=== PATIENT | female | born 1990 | race Hispanic/Latino ===

== ENCOUNTER 2020-09-10 19:43 | Inpatient (IN) | payer BC ==
[~2020-09-10 19:43] MED LIST: Iopamidol-370 76% 500 ML 1 ML ONE
[2020-09-10] MEDS ORDERED: Ketorolac Tromethamine 30 MG/ML VIAL ONE (20:18)
[2020-09-10 20:29] LABS: #Basophils 0.1 thou/uL (0.0-0.2); #Lymphocytes 1.7 thou/uL (1.20-3.40); #Monocytes 0.5 thou/uL (0.11-0.59); #Neutrophils 7.5 thou/uL (1.40-6.50); %Basophils 0.7 % (0.0-1.0); %Eosinophils 0.1 % (0.0-10.0); %Lymphocytes 17.3 % (21.0-51.0); %Monocytes 4.9 % (0.0-10.0); Hemoglobin 14.1 g/dL (12.0-16.0); Mean Corpuscular HGB CONC 34.6 g/dL (32.0-36.0); Mean Corpuscular Hemoglobin 30.2 pg (27.0-31.0); Mean Corpuscular Volume 87.1 fL (78.0-98.0); Mean Platelet Volume 7.1 fL (7.4-10.4); Platelet Count 323 thou/uL (130-400); RBC Distribution Width 11.5 % (11.5-14.5); Red Blood Cell (RBC) Count 4.69 mill/uL (4.20-5.40); White Blood Cell (WBC) Count 9.7 thou/uL (4.8-10.8)
--- NOTE | 2020-09-10 20:44 | RAD ---
PORTABLE CHEST ONE VIEW: 09/10/20 at 8:05 p.m. HISTORY: COVID positive, difficulty breathing. FINDINGS: The heart size is normal. The lungs are well expanded with patchy multifocal opacities bilaterally. N o pneumothoraces or pleural effusions are seen. IMPRESSION: Findings are consistent with COVID-19 pneumonia. POS: OFF
[2020-09-10 20:48] LABS: ALT (SGPT) 51 U/L (8-55); AST (SGOT) 66 U/L (5-34); Albumin 3.7 g/dL (3.5-5.0); Alkaline Phosphatase 79 U/L (40-110); Anion Gap 18 mmol/L (10-20); BUN (Urea Nitrogen) 12 mg/dL (7.0-18.7); Bilirubin, Total 0.5 mg/dL (0.2-1.2); Calc. Creatinine Clearance 0 mL/min (70-130); Calcium 8.4 mg/dL (7.8-10.44); Carbon Dioxide 24 mmol/L (22-29); Chloride 100 mmol/L (98-107); Globulin 3.5 g/dL (2.4-3.5); Glucose 116 mg/dL (70-105); Protein, Total 7.2 g/dL (6.0-8.3); Sodium 139 mmol/L (136-145)
[2020-09-10 21:13] LABS: Bilirubin Negative (Negative); Blood, Urine Negative (Negative); Clarity Clear (Clear); Glucose, Urine (Dipstick) Normal (Negative); Ketone, Urine 10 mg/dL (Negative); Leukocyte Negative Leu/uL (Negative); Nitrite Negative (Negative); Protein, Urine (Dipstick) 70 mg/dL (Neg-Trace); RBC/HPF 0-3 HPF (0-3); Specific Gravity, Urine 1.032 (1.002-1.036); Urobilinogen Normal mg/dL (Less than 2)
[2020-09-10 21:14] LABS: Bacteria/HPF Rare-Few HPF (None Seen)
[2020-09-10 21:15] LABS: Pregnancy Test - Urine (BHCG) Negative (Negative); Pregu Control Background? CLEAR/WHITE (CLR/WHITE); Pregu Control Bar Appear? YES (CONTROL BAR); Specific Gravity 1.032 (1.002-1.036)
--- NOTE | 2020-09-10 21:58 | CT ---
CT PULMONARY ANGIOGRAM WITH IV CONTRAST AND 3D POSTPROCESSIN09/10/20 HISTORY: Dyspnea. COVID positive. FINDINGS: No filling defects are seen in the pulmonary arterial vasculature to suggest pulmonary embolism. The thoracic aorta is well opacified without aneurysmal dissection. No pleural or pericardial effusions a re seen. There are scattered patchy multifocal ground glass opacity/consolidation in the lung dhillon bilaterally. No acute osseous abnormalities are seen. There is a metallic density posteriorly at T10 level. IMPRESSION: 1. No CT evidence of pulmonary embolism. 2. COVID-19 pneumonia. POS: OFF
[2020-09-10] MEDS ORDERED: Dexamethasone 10 MG/ML VIAL ONE (22:49)
[2020-09-11 00:51] VITALS: BMI 31.5
[2020-09-11] MEDS ORDERED: Ondansetron PF 4 MG/2 ML Vial IVP PRN (03:13)
[2020-09-11] MEDS ORDERED: HYDROcodone/Acetaminophen 5/325 mg Tablet PO PRN (03:13)
[2020-09-11] MEDS ORDERED: Guaifenesin DM 100-10/5 ML UDCUP PO PRN (03:13)
[2020-09-11] MEDS ORDERED: Promethazine HCl 12.5 MG in Sodium Chloride 0.9% 50 ML IVPB PRN (03:13)
[2020-09-11] MEDS ORDERED: hydrALAZINE 20 MG/ML VIAL SLOW IVP PRN (03:13)
[2020-09-11] MEDS ORDERED: Labetalol HCl 100 MG/20 ML VIAL SLOW IVP PRN (03:13)
[2020-09-11] MEDS ORDERED: Electrolyte Replacement Protocol 1 EACH FS SCH (03:15)
--- NOTE | 2020-09-11 03:17 | PDOC.HHP ---
Hospitalist HPI - History of Present Illness Shortness of breath History of Present Illness: Patient is a 29 year old female with no significant PMH who presents to ED for shortness of breath. She was diagnosed with covid 19 on the , reports SOB today, o2 was 80s earlier she reported, improved w/ albuterol hfa. She had a fever to 103, pressure in chest, she was diagnosed with R lung pneumonia on . she reports body aches. in ED, patinet tachycardic and tachypneic, improved with supplemental o2. CXR w/ covid 19 pneumonia. d dimer elevated, cta chest did not reveal embolism. she desaturated to 80s w/ ambulation in ED, admitted for further and workup and care. Hospitalist ROS - Review of Systems Constitutional: denies: fever, chills, sweats, weakness, malaise, other Eyes: denies: pain, vision change, conjunctivae inflammation, eyelid inflammation, redness, other ENT: denies: ear pain, ear discharge, nose pain, nose discharge, nose congestion, mouth pain, mouth swelling, throat pain, throat swelling, other Respiratory: reports: cough, shortness of breath, SOB with excertion. denies: dry, hemoptysis, pleuritic pain, sputum, wheezing, other Cardiovascular: denies: chest pain, palpitations, orthopnea, paroxysmal noc. dyspnea, edema, light headedness, other Gastrointestinal: denies: nausea, vomiting, abdominal pain, diarrhea, constipation, melena, hematochezia, other Genitourinary: denies: dysuria, frequency, incontinence, hematuria, retention, other Musculoskeletal: denies: neck pain, shoulder pain, arm pain, back pain, hand pain, leg pain, foot pain, other Skin: denies: rash, lesions, carey, bruising, other Neurological: denies: weakness, numbness, incoordination, change in speech, confusion, seizures, other All other systems reviewed; all pertinent +/- noted in HPI/Subj - Medication Medications: none Hospitalist History - Past Medical History Other Medical History: PT SHOT IN AND HAS BULLET IN BACK FROM 15Y/O. - Past Surgical History Other Surgical History: FINGER SURGERY. - Family History Family History: reports: no pertinent history - Social History Smoking Status: Never smoker Alcohol: reports: Rare Drugs: reports: none - Exam General Appearance: NAD, awake alert Eye: PERRL, anicteric sclera ENT: normocephalic atraumatic, no oropharyngeal lesions, moist mucosa Neck: supple, symmetric, no JVD, no thyromegaly, no lymphadenopathy, no carotid bruit Heart: RRR, no murmur, no gallops, no rubs, normal peripheral pulses Respiratory: CTAB, no wheezes, no rales, no ronchi, normal chest expansion, no tachypnea, normal percussion Gastrointestinal: soft, non-tender, non-distended, normal bowel sounds, no pa lpable masses, no hepatomegaly, no splenomegaly, no bruit Extremities: no cyanosis, no clubbing, no edema Skin: normal turgor, no lesions, no rashes Neurological: cranial nerve grossly intact, normal sensation to touch, no we akness, no focal deficits, no new deficit Musculoskeletal: normal tone, normal strength, no muscle wasting Psychiatric: normal affect, normal behavior, A&O x 3 Hospitalist Results - Labs Result Diagrams: 09/10/20 20:09 09/10/20 20:09 Lab results: WBC 9.7 thou/uL (4.8-10.8) 09/10/20 20:09 Hgb 14.1 g/dL (12.0-16.0) 09/10/20 20:09 Hct 40.8 % (36.0-47.0) 09/10/20 20:09 MCV 87.1 fL (78.0-98.0) 09/10/20 20:09 Plt Count 323 thou/uL (130-400) 09/10/20 20:09 Neutrophils % 77.0 % (42.0-75.0) H 09/10/20 20:09 Sodium 139 mmol/L (136-145) 09/10/20 20:09 Potassium 3.0 mmol/L (3.5-5.1) L 09/10/20 20:09 Chloride 100 mmol/L (98-107) 09/10/20 20:09 Carbon Dioxide 24 mmol/L (22-29) 09/10/20 20:09 BUN 12 mg/dL (7.0-18.7) 09/10/20 20:09 Creatinine 0.90 mg/dL (0.6-1.1) 09/10/20 20:09 Glucose 116 mg/dL (70-105) H 09/10/20 20:09 Calcium 8.4 mg/dL (7.8-10.44) 09/10/20 20:09 Total Bilirubin 0.5 mg/dL (0.2-1.2) 09/10/20 20:09 AST 66 U/L (5-34) H 09/10/20 20:09 ALT 51 U/L (8-55) 09/10/20 20:09 Alkaline Phosphatase 79 U/L (40-110) 09/10/20 20:09 Troponin I Less than 0.010 ng/mL (< 0.028) 09/10/20 20:09 Serum Total Protein 7.2 g/dL (6.0-8.3) 09/10/20 20:09 Albumin 3.7 g/dL (3.5-5.0) 09/10/20 20:09 Urine Ketones 10 mg/dL (Negative) A 09/10/20 20:40 Urine Blood Negative (Negative) 09/10/20 20:40 Urine Nitrite Negative (Negative) 09/10/20 20:40 Ur Leukocyte Esterase Negative Justin/uL (Negative) 09/10/20 20:40 Urine RBC 0-3 HPF (0-3) 09/10/20 20:40 Urine WBC 7-10 HPF (0-3) A 09/10/20 20:40 Ur Squamous Epith Cells 4-6 HPF (0-3) A 09/10/20 20:40 Urine Bacteria Rare-Few HPF (None Seen) 09/10/20 20:40 Additional comment: VITAL SIGNS SunSep 10, 2020 19:46 CROW Limon, Allie BP: 106/67 MAP: 79 Pulse: 115 Resp: 20 Temp: 98.8 (Oral) Pain: 0 O2 sat: 96 on (Room Air) Time: 09/10/2020 19:46. XR Chest 1 View Portable Observe DT: SunSep 10, 2020 19:53 CXRP PORTABLE CHEST ONE VIEW: 09/10/20 at 8:05 p.m. HISTORY: COVID positive, difficulty breathing. FINDINGS: The heart size is normal. The lungs are well expanded with patchy multifocal opacities bilaterally. N o pneumothoraces or pleural effusions are seen. IMPRESSION: Findings are consistent with COVID-19 pneumonia. POS: OFF .CTA Angio Chest W WO Con Observe DT: SunSep 10, [address] PULMONARY ANGIOGRAM WITH IV CONTRAST AND 3D POSTPROCESSIN09/10/20 HISTORY: Dyspnea. COVID positive. FINDINGS: No filling defects are seen in the pulmonary arterial vasculature to suggest pulmonary embolism. The thoracic aorta is well opacified without aneurysmal dissection. No pleural or pericardial effusions a re seen. There are scattered patchy multifocal ground glass opacity/consolidation in the lung dhillon bilaterally. No acute osseous abnormalities are seen. There is a metallic density posteriorly at T10 level. IMPRESSION: 1. No CT evidence of pulmonary embolism. 2. COVID-19 pneumonia. POS: OFF . - EKG Interpretation EK LEAD EKG INTERPRETATION 12 lead EKG shows sinus tachycardia Rate (beats per minute): 113 with no ectopics Conduction normal ST segments normal T waves normal Burgin normal. Hospitalist H&P A/P - Plan Plan: Patient is a 29 year old female with no significant PMH who presents to ED for shortness of breath. # covid 19 pneumonia # hypoxia - admit to floor - continue supplemental o2, wean as tolerated - azithromycin, decadron - out of range for remdesivir # DVT/GI ppx
[2020-09-11] MEDS ORDERED: Albuterol 200 PUFF (6.7GM INHALER) INH PRN (03:38)
[2020-09-11] MEDS ORDERED: Azithromycin 500 MG in Sodium Chloride 0.9% 250 ML 250 ML IVPB SCH (04:00)
[2020-09-11] MEDS: Acetaminophen 325 MG TAB PO PRN (08:39)
[2020-09-11] MEDS: Polyethylene Glycol 3350 17 GM Packet PO SCH ×2 (08:39)
[2020-09-11] MEDS: Famotidine 20 MG TAB PO SCH ×2 (08:39→21:33)
[2020-09-11] MEDS ORDERED: FLU VACC QS2020-21(6MOS UP)/PF 60 MCG/0.5 ML SYRINGE IM ONE (09:00)
[2020-09-11 12:32] LABS: Potassium 3.7 mmol/L (3.5-5.1)
--- NOTE | 2020-09-11 16:44 | PDOC.HOSPP ---
- Subjective Encounter Date: 09/11/20 Encounter Time: 16:43 Subjective: Ms. Alvarado was seen today in follow-up of COVID pneumonia ad respiratory failure. She admits to feeling better. She continues to have a heavy feeling in her chest, ad a cough with phlem. She says she has regained her since of smell and taste. She notes some constipation. - Objective Vital Signs & Weight: Vital Signs (12 hours) Temp Pulse Resp BP BP Pulse Ox 09/11/20 11:12 98.2 F 60 16 103/69 98 09/11/20 07:36 98.3 F 75 20 94/65 95 09/11/20 05:41 97.8 F 77 18 105/65 97 Weight Admit Weight 167 lb Weight 167 lb I&O: 09/10/20 09/11/20 09/12/20 06:59 06:59 06:59 Intake Total 720 Balance 720 Result Diagrams: 09/10/20 20:09 09/11/20 12:07 Hospitalist ROS - Medication Medications: Active Medications Generic Name Dose Route Start Last Admin Trade Name Freq PRN Reason Stop Dose Admin Acetaminophen 650 mg 09/11/20 03:13 09/11/20 08:39 Acetaminophen 325 Mg Tab PO 650 mg Q4H PRN Administration Headache/Fever/Mild Pain (1-3) Famotidine 20 mg 09/11/20 09:00 09/11/20 08:39 Famotidine 20 Mg Tab PO 20 mg BID TORSTEN Administration Polyethylene Glycol 17 gm 09/11/20 09:00 09/11/20 08:39 Polyethylene Glycol 3350 17 Gm Packet PO Not Given DAILY TORSTEN - Exam Eye: PERRL, anicteric sclera Heart: RRR, no murmur, no gallops, no rubs, normal peripheral pulses Respiratory: rales (at both bases) Gastrointestinal: soft, non-tender, non-distended, normal bowel sounds, no palpable masses, no hepatomegaly, no splenomegaly Extremities: no cyanosis (pulses are 2+ in d.p. and p.t. bilaterally), no clubbing, no edema Hosp A/P (1) Pneumonia due to COVID-19 virus Code(s): U07.1 - COVID-19; J12.82 - PNEUMONIA DUE TO CORONAVIRUS DISEASE 2019 Status: Acute (2) Acute respiratory failure with hypoxemia Code(s): J96.01 - ACUTE RESPIRATORY FAILURE WITH HYPOXIA Status: Acute (3) Obesity (BMI 30.0-34.9) Code(s): E66.9 - OBESITY, UNSPECIFIED Status: Chronic - Plan * COVID pneumonia- continue supplemental oxygen, and Decadron * DVT prophylaxis * Continue empiric antibiotics for possible super-imposed bacterial infection * If she remains stable by day 14, then she can be discharged home
[2020-09-11] MEDS: Azithromycin 500 MG in Sodium Chloride 0.9% 250 ML 250 ML IVPB SCH (21:31)
[2020-09-11] MEDS: Enoxaparin Sodium 40 MG/0.4 ML SYRINGE SC SCH (21:33)
[2020-09-12] MEDS: Acetaminophen 325 MG TAB PO PRN (06:21)
[2020-09-12 06:31] LABS: #Eosinphils 0.1 thou/uL (0.0-0.7); #Monocytes 0.7 thou/uL (0.11-0.59); #Neutrophils 4.4 thou/uL (1.40-6.50); %Basophils 0.1 % (0.0-1.0); %Eosinophils 1.2 % (0.0-10.0); %Lymphocytes 36.2 % (21.0-51.0); %Monocytes 8.9 % (0.0-10.0); %Neutrophils 53.6 % (42.0-75.0); Hemoglobin 11.4 g/dL (12.0-16.0); Mean Corpuscular HGB CONC 35.3 g/dL (32.0-36.0); Mean Corpuscular Hemoglobin 30.8 pg (27.0-31.0); Mean Corpuscular Volume 87.4 fL (78.0-98.0); Mean Platelet Volume 7.1 fL (7.4-10.4); Platelet Count 322 thou/uL (130-400); RBC Distribution Width 11.5 % (11.5-14.5); White Blood Cell (WBC) Count 8.2 thou/uL (4.8-10.8)
[2020-09-12 06:54] LABS: Anion Gap 13 mmol/L (10-20); BUN (Urea Nitrogen) 10 mg/dL (7.0-18.7); Calc. Creatinine Clearance 134 mL/min (70-130); Calcium 8.3 mg/dL (7.8-10.44); Carbon Dioxide 27 mmol/L (22-29); Chloride 105 mmol/L (98-107); Glucose 106 mg/dL (70-105); Magnesium 1.9 mg/dL (1.6-2.6); Potassium 3.3 mmol/L (3.5-5.1); Sodium 142 mmol/L (136-145)
[2020-09-12] MEDS: Famotidine 20 MG TAB PO SCH ×2 (08:21→21:41)
[2020-09-12] MEDS: Polyethylene Glycol 3350 17 GM Packet PO SCH (09:07)
[2020-09-12] MEDS ORDERED: Magnesium 2 GM/50 ML 2 GM in Premix Bag 1 BAG IVPB SCH (09:45)
[2020-09-12] MEDS ORDERED: Potassium Chloride 20 MEQ TAB PO SCH (09:45)
--- NOTE | 2020-09-12 16:04 | PDOC.HOSPP ---
- Subjective Encounter Date: 09/12/20 Encounter Time: 16:02 Subjective: Ms. Alvarado was seen today in follow-up of COVID pneumonia. She notes continues problem with cough, especially when she gets up to do any activity. - Objective Vital Signs & Weight: Vital Signs (12 hours) Temp Pulse Resp BP Pulse Ox 09/12/20 08:00 98.2 F 98 09/12/20 07:28 98.2 F 74 18 99/67 97 09/12/20 05:22 98.4 F 85 18 101/64 92 L Weight Admit Weight 167 lb Weight 167 lb I&O: 09/11/20 09/12/20 09/13/20 06:59 06:59 06:59 Intake Total 1330 360 Balance 1330 360 Result Diagrams: 09/12/20 06:01 09/12/20 06:01 Hospitalist ROS - Medication Medications: Active Medications Generic Name Dose Route Start Last Admin Trade Name Freq PRN Reason Stop Dose Admin Acetaminophen 650 mg 09/11/20 03:13 09/12/20 06:21 Acetaminophen 325 Mg Tab PO 650 mg Q4H PRN Administration Headache/Fever/Mild Pain (1-3) Enoxaparin Sodium 40 mg 09/11/20 21:00 09/11/20 21:33 Enoxaparin Sodium 40 Mg/0.4 Ml Syringe SC 40 mg 2100 TORSTEN Administration Famotidine 20 mg 09/11/20 09:00 09/12/20 08:21 Famotidine 20 Mg Tab PO 20 mg BID TORSTEN Administration Azithromycin 500 mg/ Sodium 250 mls @ 0 mls/hr 09/11/20 21:00 09/11/20 21:31 Chloride IVPB 250 mls HS TORSTEN Administration Polyethylene Glycol 17 gm 09/11/20 09:00 09/12/20 09:07 Polyethylene Glycol 3350 17 Gm Packet PO 17 gm DAILY TORSTEN Administration - Exam Eye: PERRL, anicteric sclera Heart: RRR, no murmur, no gallops, no rubs, normal peripheral pulses Respiratory: rales (at both bases) Gastrointestinal: soft, non-tender, non-distended, normal bowel sounds, no p alpable masses, no hepatomegaly Extremities: no cyanosis, no edema Hosp A/P (1) Pneumonia due to COVID-19 virus Code(s): U07.1 - COVID-19; J12.82 - PNEUMONIA DUE TO CORONAVIRUS DISEASE 2018 Status: Acute (2) Acute respiratory failure with hypoxemia Code(s): J96.01 - ACUTE RESPIRATORY FAILURE WITH HYPOXIA Status: Acute (3) Obesity (BMI 30.0-34.9) Code(s): E66.9 - OBESITY, UNSPECIFIED Status: Chronic - Plan * COVID pneumonia- continue supplemental oxygen, and Decadron * DVT prophylaxis * Continue empiric antibiotics for possible super-imposed bacterial infection * She continues to require oxygen when she ambulates * Will re-assess tomorrow * Hopefully home tomorrow
[2020-09-12] MEDS: Benzonatate 100 MG CAP PO PRN ×2 (17:44→21:41)
[2020-09-12] MEDS: Azithromycin 500 MG in Sodium Chloride 0.9% 250 ML 250 ML IVPB SCH (21:40)
[2020-09-12] MEDS: Enoxaparin Sodium 40 MG/0.4 ML SYRINGE SC SCH (21:41)
[2020-09-12] MEDS ORDERED: Dexamethasone 4 mg/ml Vial SLOW IVP SCH (22:00)
[2020-09-13 07:26] VITALS: TEMP 98.2
[2020-09-13] MEDS: Benzonatate 100 MG CAP PO PRN (08:01)
[2020-09-13] MEDS: Polyethylene Glycol 3350 17 GM Packet PO SCH (08:01)
[2020-09-13] MEDS: Famotidine 20 MG TAB PO SCH (08:01)
[2020-09-13 08:53] LABS: Potassium 4.1 mmol/L (3.5-5.1)
--- NOTE | 2020-09-13 16:36 | PDOC.HOSPP ---
- Subjective Encounter Date: 09/13/20 Encounter Time: 16:34 Subjective: Ms. Alvarado was seen today in follow-up of COVID pneumonia. She is feeling much better. Home oxygen has been arranged. - Objective Vital Signs & Weight: Vital Signs (12 hours) Temp Pulse Resp BP Pulse Ox 09/13/20 08:00 100/59 L 95 09/13/20 07:22 98.2 F 93 20 100/59 L 94 L Weight Admit Weight 167 lb Weight 167 lb I&O: 09/12/20 09/13/20 09/14/20 06:59 06:59 06:59 Intake Total 1330 1730 240 Balance 1330 1730 240 Result Diagrams: 09/12/20 06:01 09/13/20 08:19 Hospitalist ROS - Medication Medications: Active Medications Generic Name Dose Route Start Last Admin Trade Name Freq PRN Reason Stop Dose Admin Acetaminophen 650 mg 09/11/20 03:13 09/12/20 06:21 Acetaminophen 325 Mg Tab PO 650 mg Q4H PRN Administration Headache/Fever/Mild Pain (1-3) Benzonatate 100 mg 09/12/20 16:08 09/13/20 08:01 Benzonatate 100 Mg Cap PO 100 mg Q4H PRN Administration Cough Dexamethasone 6 mg 09/12/20 22:00 09/12/20 21:41 Dexamethasone 4 Mg/Ml Vial SLOW IVP 6 mg 2200 TORSTEN Administration Enoxaparin Sodium 40 mg 09/11/20 21:00 09/12/20 21:41 Enoxaparin Sodium 40 Mg/0.4 Ml Syringe SC 40 mg 2100 TORSTEN Administration Famotidine 20 mg 09/11/20 09:00 09/13/20 08:01 Famotidine 20 Mg Tab PO 20 mg BID TORSTEN Administration Ondansetron HCl 4 mg 09/11/20 03:13 09/12/20 17:49 Ondansetron Pf 4 Mg/2 Ml Vial IVP 4 mg Q6H PRN Administration Nausea/Vomiting, use 1st Polyethylene Glycol 17 gm 09/11/20 09:00 09/13/20 08:01 Polyethylene Glycol 3350 17 Gm Packet PO 17 gm DAILY TORSTEN Administration - Exam Eye: PERRL, anicteric sclera Heart: RRR, no murmur, no gallops, no rubs, normal peripheral pulses Respiratory: no wheezes, no ronchi, rales (at the bases) Gastrointestinal: soft, non-tender, non-distended, normal bowel sounds, no palpable masses, no hepatomegaly Extremities: no cyanosis, no edema Hosp A/P (1) Pneumonia due to COVID-19 virus Code(s): U07.1 - COVID-19; J12.82 - PNEUMONIA DUE TO CORONAVIRUS DISEASE 2019 Status: Acute (2) Acute respiratory failure with hypoxemia Code(s): J96.01 - ACUTE RESPIRATORY FAILURE WITH HYPOXIA Status: Acute (3) Obesity (BMI 30.0-34.9) Code(s): E66.9 - OBESITY, UNSPECIFIED Status: Chronic - Plan * COVID pneumonia- much improved * Home oxygen has been arranged * Stable for discharge home
[2020-09-13 17:15] VITALS: BP 102/64
--- NOTE | 2020-09-13 18:06 | PDOC.DS.DS ---
Provider - Provider Date of Admission: 09/11/20 18:24 Date of Discharge: 09/13/20 Admitting Provider: Chandra Villa MD Primary Care Physician: NO PCP PROVIDER Course - Hospital Course Hospital Course: Ms. Alvarado is a pleasant 29-year-old female that has no significant past medical history. She was admitted to the hospital after having difficulty breathing due to COVID-19 pneumonia. She was also having a high fever and body aches. She was evaluated in the emergency room and had a CT angiogram of the chest. This was negative for pulmonary embolism. She was requiring supplemental oxygen and for this reason she was admitted to the hospital. She was placed on IV Decadron. And she remained in the hospital until she reached day 14 she was still clinically stable and it was not anticipated that she would decompensate and for this reason she was able to be discharged home. Home oxygen was set up prior to her discharge. Pertinent Studies: CTA- chest Resuscitation Status: 09/11/20 03:13 Resuscitation Status Routine Resuscitation Status: FULL: Full Resuscitation - Labs Lab Results: 09/12/20 06:01 09/13/20 08:19 Abnormal Lab Results - Last 48 hrs 09/12/20 06:01: Potassium 3.3 L 09/12/20 06:01: RBC 3.70 L, Hgb 11.4 L, Hct 32.3 L, MPV 7.1 L, Monocytes # 0.7 H 09/12/20 09:05: C-Reactive Protein 4.11 H 09/12/20 09:05: Ferritin 797.57 H 09/12/20 09:05: D-Dimer 1.40 H - Physical Exam Vitals: Vital Signs (12 hours) Temp Pulse Resp BP Pulse Ox 09/13/20 17:14 102/64 09/13/20 08:00 100/59 L 95 09/13/20 07:22 98.2 F 93 20 100/59 L 94 L Weight Admit Weight 167 lb Weight 167 lb Physical Exam: The patient was seen and examined on the day of discharge. Problem - Problem (1) Pneumonia due to COVID-19 virus Code(s): U07.1 - COVID-19; J12.82 - PNEUMONIA DUE TO CORONAVIRUS DISEASE 2019 Status: Acute (2) Acute respiratory failure with hypoxemia Code(s): J - ACUTE RESPIRATORY FAILURE WITH HYPOXIA Status: Acute (3) Obesity (BMI 30.0-34.9) Code(s): E66.9 - OBESITY, UNSPECIFIED Status: Chronic Plan - Discharge Medications Prescriptions: Dexamethasone [Decadron] 6 mg PO QAM-WM #7 tablet Home Medications: Medication Instructions Recorded Confirmed Type Benzonatate [Tessalon] 100 mg PO TID PRN 09/11/20 09/11/20 History Promethazine/Dextromethorphan 5 ml PO Q4HR 09/11/20 09/11/20 History [Promethazine-Dm Syrup] Dexamethasone [Decadron] 6 mg PO QAM-WM #7 tablet 09/13/20 Rx Allergies: No Known Allergies Allergy (Verified 09/11/20 01:16) - Discharge Instructions Discharge Instructions:: Follow-up with a Primary Care Physician in 2 weeks YOUR PRESCRIPTIONS WERE SENT TO: [facility] [address] [place] [address] Activity:: Activity as Tolerated Nourishment:: Heart Healthy Diet - Follow up Plan Referrals: [facility] [Outside] PROVIDER,NO PCP [Primary Care Provider] - Disposition: HOME Quality - Care Measures CORE MEASURES:: N/A
[2020-09-13] MEDS ORDERED: Azithromycin 250 MG TAB PO SCH (21:00)
--- NOTE | 2020-09-15 18:09 | PQF ---
Dear : Kenan Lopez Date 09/16/2020 Please exercise your independent, professional judgment in responding to the clarification form. Clinical indicators are provided on the bottom of this form for your review Can you please further clarify the diagnosis of the patient? Please check appropriate box(es): [ X ] hypokalemia [ ] Insignificant laboratory findings [ ] Other diagnosis [ ] Unable to determine Physician Signature: Date/Time: For continuity of documentation, please document condition throughout progress notes and discharge summary. Thank You. To be completed by CDI/Coding staff for physician review: Present Clinical Indicators - Signs / Symptoms / Labs Results and Location in Medical Record [ x ] Potassium: 3.0L, 37., 3.3l, 4.1 Laboratory [ x ] Reports body aches H and P pg.1 Present Risk Factors Results and Location in Medical Record [ x ] COVID Pneumonia H and P pg.5 [ x ] Obesity Hospitalist PN pg.3 Present Treatments Results and Location in Medical Record [ x ] Potassium monitoring Laboratory [ x ] Potassium chloride 40 MEQ PO MAR [ x ] IV Fluids MAR CDS/Pbx Manager Signature: Mika Frias Phone #: ext [phone] Date 09/15/20 This is a permanent part of the Medical Record [facility]
--- NOTE | 2020-10-06 12:47 | EKG ---
Test Reason : Blood Pressure : / mmHG Vent. Rate : 113 BPM Atrial Rate : 113 BPM P-R Int : 128 ms QRS Dur : 068 ms QT Int : 332 ms P-R-T Axes : 042 029 028 degrees QTc Int : 455 ms Sinus tachycardia Cannot rule out Anterior infarct , age undetermined Abnormal ECG Confirmed by ANGÉLICA Marr, BALAJI ([id number]), staff editor MAURY MASTERSON ([id number]) on 10/06/2020 12:46:37 PM Referred By: Confirmed By:BALAJI LINDSAY M.D.
== END 2020-09-13 17:37 | disposition home or self-care (01) | DRG 177 ==
LOC: ERS 19:43 → T4-B 22:30 → OBSVTOIN 09-11 18:24
PROVIDERS: ADMIT Internal Medicine; ATTEND Internal Medicine
PROC: 8E0ZXY6 Isolation (ICD-10-PCS; principal; 2020-09-11)
DX: U07.1 COVID-19 (principal); J12.82 Pneumonia due to coronavirus disease 2019; J96.01 Acute respiratory failure with hypoxia; Z23 Encounter for immunization; E66.9 Obesity, unspecified; Z68.31 Body mass index [BMI] 31.0-31.9, adult; E87.6 Hypokalemia
CPT/HCPCS: 36415; 71045; 71275; 80048; 80053; 81003; 81015; 81025; 82728; 83735; 84132; 84484; 85025; 85379; 86140; 90471; 90662; 93005; 94760; 96374; 96375; G0008; G0378; J0456; J1100; J1650; J1885; J2405; J3475; J7050; Q9967

== ENCOUNTER 2020-09-22 05:57 | Emergency (ER) | payer BC ==
[2020-09-22] MEDS ORDERED: Lorazepam 2 MG/ML VIAL ONE (06:25)
[2020-09-22] MEDS ORDERED: Ketorolac Tromethamine 30 MG/ML VIAL ONE (06:25)
--- NOTE | 2020-09-22 07:50 | ULT ---
Bilateral lower extremity venous Doppler ultrasound: 09/22/2020 COMPARISON: None HISTORY: Bilateral lower extremity pain, assess for DVT TECHNIQUE: Multiplanar grayscale sonographic imaging of the venous structures of bilateral lower extr emities obtained with color flow and spectral analysis FINDINGS: Bilateral common femoral veins, greater saphenous veins, profunda femoral veins, femoral ve ins, popliteal veins, and posterior tibial veins are patent. There is normal blood flow, augmentation, and compression within the deep venous system bilaterally. No evidence for DVT on eithe r side IMPRESSION: No evidence for deep venous thrombosis of either lower extremity.
== END 2020-09-22 08:55 | disposition home or self-care (01) ==
LOC: ERS 05:57
DX: M25.562 Pain in left knee (principal); M25.561 Pain in right knee
CPT/HCPCS: 93970; 96374; 96375; J1885; J2060

== ENCOUNTER 2020-10-20 13:35 | Outpatient (CLI) | payer BC ==
--- NOTE | 2020-10-20 14:00 | RAD ---
EXAM: Two views chest PROVIDED CLINICAL HISTORY: Pneumonia secondary to Covid. Follow-up evaluation. COMPARISON: 09/10/2020 FINDINGS: Cardiac silhouette and pulmonary vasculature are within normal limits. Lungs are clear. There has be en interval resolution of the airspace opacities noted on prior exam related to resolution of pneumonia. Metallic foreign body overlying posterior aspect lower thoracic spine is again seen. IMPRESSION: No acute cardiopulmonary process. Resolution of bilateral pneumonia.
== END 2020-10-20 13:36 | disposition home or self-care (01) ==
LOC: BICRAD 13:35
PROVIDERS: ATTEND Physician Assistant
DX: U07.1 COVID-19 (principal); J12.82 Pneumonia due to coronavirus disease 2019
CPT/HCPCS: 71046

== ENCOUNTER 2022-03-19 18:42 | Emergency (ER) | payer BC ==
[2022-03-19] MEDS ORDERED: Ketorolac Tromethamine 30 MG/ML VIAL ONE (18:56)
[2022-03-19] MEDS ORDERED: HYDROcodone/Acetaminophen 5/325 mg Tablet ONE (18:56)
== END 2022-03-19 19:41 | disposition home or self-care (01) ==
LOC: ERS 18:42
DX: S52.502A Unspecified fracture of the lower end of left radius, initial encounter for closed fracture (principal); V00.131A Fall from skateboard, initial encounter; Y93.51 Activity, roller skating (inline) and skateboarding
CPT/HCPCS: 29125; 96372; J1885

== ENCOUNTER 2022-03-29 11:06 | Outpatient (CLI) | payer BC | END 2022-03-29 11:07 | disposition home or self-care (01) | LOC: LABBT 11:06 | PROVIDERS: ATTEND Orthopaedic Surgery | DX: S52.502A Unspecified fracture of the lower end of left radius, initial encounter for closed fracture (principal); Z20.822 Contact with and (suspected) exposure to COVID-19 | CPT/HCPCS: 87811 ==

== ENCOUNTER 2022-03-30 10:43 | Day surgery (SDC) | payer BC ==
[2022-03-29 11:26] VITALS: BMI 30.6
[2022-03-30] MEDS ORDERED: Midazolam HCl 2 mg/2 ml Vial ONE (12:05)
[2022-03-30] MEDS ORDERED: Fentanyl 100 MCG/2 ML VIAL ONE (12:05)
[2022-03-30] MEDS ORDERED: Promethazine HCl 25 MG/ML VIAL ONE (12:29)
[2022-03-30] MEDS ORDERED: HYDROmorphone 0.5 MG/0.5 ML SYRINGE ONE (12:29)
[2022-03-30] MEDS ORDERED: Fentanyl 100 MCG/2 ML VIAL IV PRN (12:33)
[2022-03-30] MEDS ORDERED: CEFAZOLIN 2 GM VIAL ONE (12:42)
[2022-03-30] MEDS ORDERED: Sodium Chloride 0.9% 100 ML ONE (12:42)
[2022-03-30] MEDS ORDERED: Promethazine HCl 25 MG/ML VIAL IM PRN (12:45)
[2022-03-30] MEDS ORDERED: Ropivacaine 0.2% 550 ML 550 ML NERVE BLCK SCH (12:45)
[2022-03-30] MEDS ORDERED: traMADol HCl 50 MG TAB PO PRN ×2 (12:45)
[2022-03-30] MEDS ORDERED: Ondansetron PF 4 MG/2 ML Vial IVP PRN (12:45)
[2022-03-30] MEDS ORDERED: HYDROcodone/Acetaminophen 5/325 mg Tablet PO PRN ×2 (12:45)
[2022-03-30] MEDS ORDERED: Zolpidem Tartrate 5 MG TAB PO PRN (12:45)
[2022-03-30] MEDS ORDERED: Dexamethasone 20 MG/5 ML VIAL ONE (12:56)
[2022-03-30] MEDS ORDERED: PROPOFOL 200 MG/20 ML VIAL ONE (12:56)
[2022-03-30] MEDS ORDERED: ePHEDrine 50 MG/ML VIAL ONE (12:56)
[2022-03-30] MEDS ORDERED: Lidocaine 1% PF 5 ML VIAL ONE (12:56)
[2022-03-30] MEDS ORDERED: Ondansetron PF 4 MG/2 ML Vial ONE (12:56)
[2022-03-30] MEDS ORDERED: Ketorolac Tromethamine 30 MG/ML VIAL ONE (12:56)
[2022-03-30] MEDS ORDERED: Ropivacaine 0.5% HCl/PF (150 MG/30 ML VIAL) ONE (12:56)
[2022-03-30] MEDS ORDERED: HYDROcodone/Acetaminophen 5/325 mg Tablet ONE (15:21)
[2022-03-30] MEDS ORDERED: Ketorolac Tromethamine 30 MG/ML VIAL IVP SCH (18:00)
== END 2022-03-30 15:47 | disposition home or self-care (01) ==
LOC: SDC 10:43
PROVIDERS: ATTEND Orthopaedic Surgery
PROC: 0PSJ04Z Reposition Left Radius with Internal Fixation Device, Open Approach (ICD-10-PCS; principal; 2022-03-30)
DX: S52.572A Other intraarticular fracture of lower end of left radius, initial encounter for closed fracture (principal); Z86.16 Personal history of COVID-19; V00.211A Fall from ice-skates, initial encounter
CPT/HCPCS: 76000; A4306; C1713; J0690; J1100; J1170; J1885; J2250; J2405; J2550; J2704; J2795; J3010; J3490